=== PATIENT | male | born 1950 | race Caucasian/White ===

== ENCOUNTER 2017-06-14 18:59 | Emergency (ER) | payer MEDICARE ==
--- NOTE | 2017-06-14 20:29 | RAD ---
RIGHT ANKLE THREE VIEW: History: Fall. Rolled ankle. Comparison: None. FINDINGS: There is a distal fibular fracture of the syndesmosis with one cortex width lateral displacement. Sub cortical irregularity of the posterior malleolus. Talar dome is intact. Mild vascular calcifications. Moderate sized plantar calcaneal spur. IMPRESSION: 1. Distal fibular fracture to the syndesmosis one cortex width lateral displacement. 2. Mild cortical irregularity of the posterior malleolus may represent nondisplaced fracture. POS: TENA
[2017-06-14] MEDS ORDERED: Ibuprofen 800 MG TAB ONE (20:32)
== END 2017-06-14 20:38 | disposition home or self-care (01) ==
LOC: ERS 18:59
DX: S82.831A Other fracture of upper and lower end of right fibula, initial encounter for closed fracture (principal); S80.811A Abrasion, right lower leg, initial encounter; X50.1XXA Overexertion from prolonged static or awkward postures, initial encounter
CPT/HCPCS: 29515